=== PATIENT | male | born 1960 | race Caucasian/White ===

== ENCOUNTER → 2018-02-09 | Outpatient (CLI) | payer OTHER ==
--- NOTE | ~2018-02-09 | 2DMMODE ---
[facility] [employer] [place] [address] 2 D/M-MODE ECHOCARDIOGRAM Name: KTOA BERNARD Room #: REG [facility]#: [id number] Admission: 02/09/18 Attend Phys: Alvaro Wells, Discharge: Date of : 58 Date of Service: 02/09/18 1024 Report #: [id number] THIS REPORT FOR: //name// APPROVED REPORT Study performed: 02/09/2018 09:09:26 EXAM: Comprehensive 2D, Doppler, and color-flow Echocardiogram Patient Location: Out-Patient Status: routine BSA: 2.58 HR: 54 bpm BP: 128/76 mmHg Rhythm: NSR/arrhythmia Other Information Study Quality: Adequate/morbid obesity. Indications History of Afib. Hx: HTN,HLP,DM. 2D Dimensions RVDd: 36.00 mm IVSd: 12.00 (7-11mm) LVOT Diam: 22.00 (18-24mm) LVDd: 51.00 mm PWd: 12.00 (7-11mm) Ascending Ao: 34.20 (22-36mm) LVDs: 27.00 (25-40mm) Aortic Root: 35.00 mm Volumes Left Atrial Volume (Systole) Single Plane 4CH: 61.67 mL Single Plane 2CH: 71.04 mL LA ESV Index: 27.00 mL/m2 Aortic Valve AoV Peak Ronnell.: 1.40 m/s AO Peak Gr.: 7.81 mmHg LVOT Max P.79 mmHg LVOT Max V: 0.97 m/s JASMIN Vmax: 2.57 cm2 Mitral Valve E/A Ratio: 2.2 MV Decel. Time: 220.73 ms MV E Max Ronnell.: 1.11 m/s [facility] [address] [place] [address] 2 D/M-MODE ECHOCARDIOGRAM Name: KOTA BERNARD Room #: [facility]#: [id number] Admission: 02/09/18 Attend Phys: Alvaro Wells, Discharge: Date of : 58 Date of Service: 02/09/18 [facility] Report #: [id number] MV A Ronnell.: 0.51 m/s MV PHT: 64.01 ms IVRT: 92.27 ms Pulmonary Valve PV Peak Ronnell.: 1.07 m/s PV Peak Gr.: 4.56 mmHg Pulmonary Vein P Vein S: 0.65 m/s P Vein A: 0.30 m/s P Vein D: 0.77 m/s P Vein A Dur.: 152.2 msec P Vein S/D Ratio: 0.84 Tricuspid Valve TR Peak Ronnell.: 2.44 m/s RAP Estimate: 5.00 mmHg TR Peak Gr.: 24.00 mmHg PA Pressure: 29.00 mmHg Left Ventricle The left ventricle is normal size. There is normal LV segmental wall motion. Mild concentric left ventricular hypertrophy. Left ventricular systolic function is normal. LVEF is 60-65%. The left ventricular diastolic function is normal. Right Ventricle The right ventricle is normal size. The right ventricular systolic function is normal. Atria The left atrium size is normal. The right atrium size is normal. Aortic Valve The aortic valve is normal in structure. No aortic regurgitation is present. There is no aortic valvular stenosis. Mitral Valve The mitral valve is normal in structure. Trace to mild mitral regurgitation. No evidence of mitral valve stenosis. Tricuspid Valve The tricuspid valve is normal in structure. Trace tricuspid regurgitation. Estimated PAP is 30mmHg. Pulmonic Valve The pulmonary valve is normal in structure. There is no pulmonic valvular regurgitation. [address] [address] 2 D/M-MODE ECHOCARDIOGRAM Name: KOTA BERNARD Room #: REG [facility]#: [id number] Admission: 02/09/18 Attend Phys: Alvaro Wells, Discharge: Date of : 58 Date of Service: 02/09/18 [facility] Report #: [id number] Great Vessels The aortic root is normal in size. The ascending aorta is normal in size. IVC is normal in size and collapses >50% with inspiration. Pericardium There is no pericardial effusion. <Conclusion> Mild concentric left ventricular hypertrophy. LVEF is 60-65%. <ELECTRONICALLY SIGNED> By: Joe Major MD, FACC 02/09/18 1024 1024 1024 Joe Major MD, FACC /INF
== END ==
LOC: CV 08:52
DX: I51.7 Cardiomegaly (principal); I48.91 Unspecified atrial fibrillation; E11.9 Type 2 diabetes mellitus without complications; E78.5 Hyperlipidemia, unspecified

== ENCOUNTER → 2018-04-07 | Outpatient (CLI) | payer OTHER | LOC: ULTRA 07:46 | DX: R16.2 Hepatomegaly with splenomegaly, not elsewhere classified (principal); N28.9 Disorder of kidney and ureter, unspecified; R74.8 Abnormal levels of other serum enzymes ==

== ENCOUNTER → 2018-04-20 | Outpatient (CLI) | payer OTHER | LOC: CAT 09:05 | DX: N28.1 Cyst of kidney, acquired (principal) ==

== ENCOUNTER → 2018-05-28 | Outpatient (CLI) | payer OTHER ==
[~2018-05-28] VITALS: Ht 180.3 cm; Wt 145.2 kg
[~2018-05-28] MED LIST: ALEVE220 MG PO; AMARYL4 MG PO; B-COMPLEX TABL0.4 MG PO; GLUCOPHAGE1000 MG PO; LIPITOR10 MG PO; LISINOPRIL-HCT1 EAC1 PO; MELATONIN5 M1 PO; MEN'S MULTIVIT1 EACH PO; SOTALOL 120 MG120 M1 PO; TRULICITY1.5 MG/0.5 SUBQ; TYLENOL PM EX-1 EACH PO; VITAMIN C1000 MG PO; VITAMIN D35000 UNIT PO; XARELTO20 MG PO
--- NOTE | ~2018-05-28 | P ---
[facility] [place] [address] PROCEDURE REPORT Name: KOTA BERNARD Room #: REG [facility]#: [id number] Admission: 05/28/18 ������������������ Attend Phys: Ryan Kam MD Discharge: ������������������ Date of : 58 Report #: [id number] THIS REPORT FOR: //name// CC: Ryan Khan DO DATE OF SERVICE: 05/28/2018 OUTPATIENT COLONOSCOPY: BRIEF HISTORY: The patient is a 58-year-old male who presents for his first average risk screening colonoscopy. PREOPERATIVE DIAGNOSIS: Average risk screening colonoscopy. POSTOPERATIVE DIAGNOSES: 1. Diminutive polyp at 50 cm. 2. Moderate left-sided diverticulosis coli. 3. Small internal hemorrhoids and anal tag. MEDICATIONS: Deep sedation with propofol per anesthesia. SPECIMEN: Polyp at 50 cm. ESTIMATED BLOOD LOSS: 3 mL. PROCEDURE: Colonoscopy to cecum and ileocecal valve with biopsy. FINDINGS: With the patient in left lateral decubitus position, digital examination was completed, which revealed no abnormalities. Subsequently, the Olympus video colonoscope was introduced in the rectum, advanced under direct vision to the cecum. Done with minimal difficulty. The cecum was identified by the ileocecal valve and the appendiceal orifice. I was able to advance the scope to the mouth of the ileocecal valve, but due to looping could not cross the ileocecal valve. Villi were seen. At that point, scope was slowly withdrawn and careful circumferential views obtained. The prep was good. The mucosa was within normal limits, normal vascular pattern, normal light reflex. As we withdrew the scope, no mucosal abnormalities were seen until the left colon was reached and at 50 cm, a diminutive polyp was seen, it was superficially eroded. This may be inflammatory may not be neoplastic, but in the last it was removed with biopsy forceps. Scope was further withdrawn and no additional neoplastic changes were seen. However, he was noted to have moderately severe diverticular disease of the left colon without endoscopic evidence of diverticulitis. The scope was withdrawn in the rectum and no abnormalities were seen. Upon retroflexion, small internal hemorrhoids were [facility] [address] [place] [address] PROCEDURE REPORT Name: KOTA BERNARD Room #: REG [facility].#: [id number] Admission: 05/28/18 ������������������ Attend Phys: Ryan Kam MD Discharge: ������������������ Date of : 58 Report #: [id number] seen. In addition, an anal tag was seen. Scope was withdrawn. The patient tolerated the procedure well. CONDITION OF THE PATIENT UPON DISCHARGE: Following the procedure, the patient was drowsy, arousable and conversant and will be discharged home when fully ambulatory. INSTRUCTIONS TO THE PATIENT AND FAMILY AT THE TIME OF DISCHARGE: One polypoid lesion removed. This may not be neoplastic. We will follow up on the path. If it is a neoplastic polyp such as an adenoma suggest followup colon exam in 5 years; if it is not neoplastic then 10 years would be indicated. Otherwise, suggest high-fiber diet. This is the patient's first colonoscopy. Withdrawal time from the cecum was 11 minutes and 19 seconds. ��������������������������������������������� ���������������������������������������� By: ��������������������������������������������� 0813 [id number] Ryan Kam MD /nt
== END ==
LOC: GI 06:37 → EDSTATUS 16:09 → GI 16:35
DX: Z12.11 Encounter for screening for malignant neoplasm of colon (principal); K57.30 Diverticulosis of large intestine without perforation or abscess without bleeding; K64.8 Other hemorrhoids; K63.5 Polyp of colon; Z68.41 Body mass index [BMI] 40.0-44.9, adult; I10 Essential (primary) hypertension; E78.5 Hyperlipidemia, unspecified; E11.9 Type 2 diabetes mellitus without complications; G47.30 Sleep apnea, unspecified; Z98.890 Other specified postprocedural states
CPT/HCPCS: 62110; 62900

== ENCOUNTER → 2018-10-26 | Outpatient (CLI) | payer OTHER | LOC: CAT 07:59 | DX: K76.0 Fatty (change of) liver, not elsewhere classified (principal); N28.1 Cyst of kidney, acquired; K74.60 Unspecified cirrhosis of liver ==

== ENCOUNTER 2018-11-14 19:18 | Emergency (ER) | payer OTHER ==
[~2018-11-14] VITALS: Ht 180.3 cm; Wt 145.2 kg
[2018-11-14 19:20] VITALS: BP 164/77
[2018-11-14] MEDS ORDERED: VALACYCLOVIR1000 MG PO (19:53)
[2018-11-14] MEDS ORDERED: NORCO 5-325 TA1 EAC1 PO (19:56)
== END 2018-11-14 20:31 | disposition home or self-care (01) ==
LOC: ER 19:18
DX: B02.39 Other herpes zoster eye disease (principal); E11.9 Type 2 diabetes mellitus without complications; I10 Essential (primary) hypertension; I48.91 Unspecified atrial fibrillation; G47.30 Sleep apnea, unspecified; E78.5 Hyperlipidemia, unspecified; Z90.89 Acquired absence of other organs; Z98.890 Other specified postprocedural states; Z88.1 Allergy status to other antibiotic agents; Z88.5 Allergy status to narcotic agent; Z91.041 Radiographic dye allergy status; Z88.6 Allergy status to analgesic agent

== ENCOUNTER → 2018-12-16 | Outpatient (CLI) | payer OTHER ==
[~2018-12-16] VITALS: Ht 180.3 cm; Wt 158.8 kg
[~2018-12-16] MED LIST changes: +NORCO 5-325 TA1 EAC1 PO; +VALACYCLOVIR1000 MG PO
[2018-12-16 08:56] VITALS: BP 128/60
[2018-12-16 09:16] LABS: PROTIME 10.8 Seconds (9.3-11.4)
[2018-12-16 09:57] VITALS: BP 147/56
[2018-12-16 10:20] VITALS: BP 138/60
[2018-12-16 10:25] VITALS: BP 136/57
[2018-12-16 10:30] VITALS: BP 130/59
[2018-12-16 10:35] VITALS: BP 126/58
--- NOTE | 2018-12-20 10:06 | PATH ---
[facility] [address] [place] [address] PATHOLOGY RPT PROCEDURE Name: KOTA BERNARD Room #: [facility] [id number] Admission: 12/16/18 Date of : 58 Discharge: Report #: [id number] Path Case #: [id number] [facility] Accession Number: [id number] . 01 Material submitted: . liver - GENERAL LIVER BX . 01 Clinical history: . Elevated LFTs . 02 Diagnosis: Liver, needle core biopsy: - Mild steatohepatitis, NAFLD activity score 3/8 (steatosis = 1/3, lobular inflammation 1/3, and ballooning 1/8). - Mixed portal chronic inflammation along with ductular proliferation as well as hepatocyte reza formation, see comment. - Parag-Saul score grade 2/4 and stage 3-4/4. (IUV/db; 12/17/2018) LBQ 12/20/2018 0918 Local . 02 Comment: Examination of the liver needle core biopsy tissue shows extensive fibrosis and septa formation with a mixed inflammatory pattern. Mild (20 percent) macrovesicular steatosis is present along with ballooning and rare Shaista-Denk bodies. Rare glycogenated nuclei are present. Lobular inflammation is minimal to mild. The portal tracts and septa are markedly expanded by a mixed chronic inflammatory infiltrate comprised of lymphocytes, plasma cells, eosinophils and a few neutrophils. Few lymphoid aggregates are noted as well. Ductular proliferation and hepatocyte rosettes are present focally. Well-formed florid duct lesions or sclerosing bile duct lesions are not present. There are no granulomata identified. Cholestasis is not present. . Special stains are performed on blocks A1, A2 and A3. Trichrome stain shows focal perisinusoidal fibrosis, extensive portal to portal and portal - venular bridging fibrosis along with nodule formation. Reticulin stain shows the same along with a few foci of condensation. Iron stain is negative. PAS with and without Diastase are negative for intracytoplasmic globules in zone 1. . Steatohepatitis can be seen in several clinical settings including situations of insulin resistance, with alcohol use, as an adverse reaction to several medications, with hyperlipidemias, after gastric or small bowel resections, and as an idiopathic variant. The portal chronic inflammatory changes identified are disproportionate to the steatohepatitis and may be due to autoimmune hepatitis or drug-induced liver injury. Please correlate clinically. [address] [address] PATHOLOGY RPT PROCEDURE Name: KOTA BERNARD Room #: REG [facility]#: [id number] Admission: 12/16/18 Date of : 58 Discharge: Report #: [id number] Path Case #: [id number] . Findings of this case are discussed with Dr. Ryan Kam at 11:28 am on 12/17/18. . (IUV/db; 12/17/2018) . 02 Electronically signed: . Sammie Duran MD, Pathologist NPI- [id number] . 01 Gross description: . The specimen is received in formalin, labeled "Kota Bernard, liver biopsy". Received are four needle cores of orange-verma soft tissue ranging in length from 0.9 to 1.4 cm in length by 0.1 cm in diameter. The specimen is submitted entirely in cassette A1 through A3. (CAA; 12/16/2018) QA/QA 12/16/2018 1505 Local . 02 Pathologist provided ICD-10: K75.81, K76.9 . 02 CPT . 968392, 791023, 191720, 820093, 832071, 667737, 510681, 974457, 286937, 569725, 079406, 720829, 277278 Specimen Comment: A courtesy copy of this report has been sent to Specimen Comment: [phone], . Specimen Comment: Report sent to / DR THOMPSON Performed at: [address] [facility], [place] [id number] MD pK Rodriguez MD Phone: [phone] Performed at: [address] [facility] [id number] MD Sammie Duran MD Phone: [phone]
== END | disposition home or self-care (01) ==
LOC: ULTRA 08:18
PROVIDERS: Radiology Diagnostic Radiology
DX: R94.5 Abnormal results of liver function studies (principal); R79.89 Other specified abnormal findings of blood chemistry; K75.81 Nonalcoholic steatohepatitis (NASH); K76.9 Liver disease, unspecified; K73.8 Other chronic hepatitis, not elsewhere classified; I10 Essential (primary) hypertension; E78.5 Hyperlipidemia, unspecified; E11.9 Type 2 diabetes mellitus without complications; Z79.4 Long term (current) use of insulin; G47.33 Obstructive sleep apnea (adult) (pediatric); I48.91 Unspecified atrial fibrillation; Z98.890 Other specified postprocedural states; Z79.899 Other long term (current) drug therapy; Z79.01 Long term (current) use of anticoagulants; Z79.891 Long term (current) use of opiate analgesic
CPT/HCPCS: 52317

== ENCOUNTER → 2019-08-11 | Outpatient (CLI) | payer OTHER | LOC: CAT 09:31 | DX: N28.1 Cyst of kidney, acquired (principal); K74.60 Unspecified cirrhosis of liver; R16.1 Splenomegaly, not elsewhere classified ==

== ENCOUNTER 2019-10-03 21:36 | Emergency (ER) | payer OTHER ==
[~2019-10-03] VITALS: Ht 180.3 cm; Wt 142.9 kg
[2019-10-03 23:10] LABS: ABSOLUTE NEUTROPHILS 12.7 thou/uL (1.4-8.2); BASOPHILS 0.4 % (0.0-2.0); EOSINOPHILS 0.7 % (0.0-3.0); HEMATOCRIT 43.3 % (42.0-52.0); MCH 30.6 pg (26.0-34.0); MCHC 34.6 g/dL (28.0-37.0); MCV 88.5 fL (80.0-100.0); MONOCYTES 7.5 % (1.0-8.0); PLATELET COUNT 149 thou/uL (150-400); POLYS 84.4 % (36.0-66.0); RBC 4.89 mil/uL (4.50-6.00); RDW 13.4 % (10.5-14.5)
[2019-10-03 23:14] LABS: POTASSIUM 3.8 mmol/L (3.5-5.1)
[2019-10-03 23:20] LABS: ALBUMIN 3.6 g/dL (3.4-5.0); TOTAL BILIRUBIN 1.5 mg/dL (0.2-1.0); TOTAL PROTEIN 7.5 g/dL (6.4-8.2)
[2019-10-04 00:07] LABS: URINE BILIRUBIN NEGATIVE (Negative); URINE BLOOD NEGATIVE (Negative); URINE CLARITY CLEAR; URINE COLOR YELLOW; URINE GLUCOSE-RANDOM* NEGATIVE (Negative); URINE KETONES NEGATIVE (Negative); URINE LEUKOCYTES-REFLEX NEGATIVE (Negative); URINE NITRITE-REFLEX NEGATIVE (Negative); URINE PROTEIN (DIPSTICK) NEGATIVE (Negative); URINE SPECIFIC GRAVITY <= 1.005 (1.005-1.035); URINE UROBILINOGEN 0.2 E.U./dl (0.2-1.0)
[2019-10-04 01:49] VITALS: BP 120/52
== END 2019-10-04 01:58 | disposition home or self-care (01) ==
LOC: ER 21:36
PROVIDERS: Emergency Medicine
DX: R50.9 Fever, unspecified (principal); R19.7 Diarrhea, unspecified; I10 Essential (primary) hypertension; E11.9 Type 2 diabetes mellitus without complications; E78.5 Hyperlipidemia, unspecified; I48.91 Unspecified atrial fibrillation; Z20.828 Contact with and (suspected) exposure to other viral communicable diseases; Z79.899 Other long term (current) drug therapy; Z88.1 Allergy status to other antibiotic agents; Z88.8 Allergy status to other drugs, medicaments and biological substances; Z91.048 Other nonmedicinal substance allergy status

== ENCOUNTER → 2020-06-29 | Outpatient (CLI) | payer OTHER | LOC: SJCVCIMAG 15:02 | PROVIDERS: ATTEND Internal Medicine Cardiovascular Disease | DX: I48.0 Paroxysmal atrial fibrillation (principal); E11.9 Type 2 diabetes mellitus without complications; E78.2 Mixed hyperlipidemia; G47.33 Obstructive sleep apnea (adult) (pediatric); Z79.4 Long term (current) use of insulin; Z79.899 Other long term (current) drug therapy; Z88.0 Allergy status to penicillin; Z88.8 Allergy status to other drugs, medicaments and biological substances; Z72.89 Other problems related to lifestyle ==

== ENCOUNTER → 2020-07-20 | Outpatient (CLI) | payer OTHER ==
[2020-07-20 10:20] LABS: ABSOLUTE NEUTROPHILS 5.9 thou/uL (1.4-8.2); BASOPHILS 0.6 % (0.0-2.0); EOSINOPHILS 3.5 % (0.0-3.0); HEMATOCRIT 47.9 % (42.0-52.0); HEMOGLOBIN 16.7 gm/dL (14.0-18.0); LYMPHOCYTES 27.2 % (24.0-44.0); MCH 30.7 pg (26.0-34.0); MCHC 34.9 g/dL (28.0-37.0); MONOCYTES 11.5 % (1.0-8.0); PLATELET COUNT 212 thou/uL (150-400); POLYS 57.2 % (36.0-66.0); RBC 5.44 mil/uL (4.50-6.00); RDW 13.2 % (10.5-14.5); WBC 10.4 thou/uL (4.0-11.0)
[2020-07-20 10:38] LABS: ALBUMIN 3.6 g/dL (3.4-5.0); CALCIUM 9.2 mg/dL (8.5-10.1); CREATININE 1.2 mg/dL (0.7-1.3); POTASSIUM 4.1 mmol/L (3.5-5.1); TOTAL BILIRUBIN 0.8 mg/dL (0.2-1.0); TOTAL PROTEIN 7.2 g/dL (6.4-8.2)
== END ==
LOC: CAT 09:16
PROVIDERS: ATTEND Internal Medicine Cardiovascular Disease
DX: I48.91 Unspecified atrial fibrillation (principal)

== ENCOUNTER → 2020-07-20 | Outpatient (CLI) | payer OTHER | LOC: LAB 08:00 | PROVIDERS: ATTEND Internal Medicine Cardiovascular Disease | DX: Z01.812 Encounter for preprocedural laboratory examination (principal); Z20.822 Contact with and (suspected) exposure to COVID-19 ==

== ENCOUNTER 2020-07-25 06:31 | Observation (INO) | payer OTHER ==
[~2020-07-25] VITALS: Ht 180.3 cm; Wt 141.5 kg
[2020-07-25 07:19] VITALS: BP 168/84
[2020-07-25] MEDS ORDERED: CHILDREN'S ZYRT10 M1 PO (07:38)
[2020-07-25] MEDS ORDERED: WELLBUTRIN XL300 MG PO (07:38)
[2020-07-25] MEDS ORDERED: TYLENOL PM EX-1 EACH PO (07:42)
[2020-07-25] MEDS ORDERED: HUMULIN R100 UNIT/1 INTRADERM (07:44)
[2020-07-25] MEDS ORDERED: OZEMPIC0.25 MG/0. SUBQ (07:48)
[2020-07-25 07:55] LABS: APTT 26.8 Seconds (24.5-32.8); INR 1.07; PROTIME 11.6 Seconds (10.5-12.1)
[2020-07-25 13:44] VITALS: BP 157/85
[2020-07-25 15:05] VITALS: BP 150/81
[2020-07-25 16:13] VITALS: BP 153/81
--- NOTE | 2020-07-25 16:39 | NUR ---
PT TO THE UNIT POST A FIB ABLATION - ORIENTED TO ROOM AND BEDSPACE. RUTH DIET AND FLUIDS. GROIN SITE STABLE, VSS. PT HAS VOIDED POST PROCEDURE. REMIANS ON BEDREST AT THE PRESENT TIME. ASSESSMENT CHARTED . PT STATES THAT HE IS RESTING COMFORTABLY - AT THE BEDSDIE. NO CO'S AT THE PRESENT TIME.
[2020-07-25 17:17] VITALS: BP 154/75
[2020-07-25 20:45] VITALS: BP 172/84
[2020-07-26 00:45] VITALS: BP 151/74
[2020-07-26 04:45] VITALS: BP 164/75
[2020-07-26 07:12] VITALS: BP 151/79
[2020-07-26 09:27] VITALS: BP 151/79
--- NOTE | 2020-07-26 10:06 | NUR ---
assessment as charted - meds as per ron - jose diet and fluids. up ad leatha in room. groin site c/d/i. given tylenol for co's of headache with mod relief. pt home this am - instruction re home meds/ care and follow up given to patient - stated understanding of instruction given. pt left unit via wheelchair - home via pvt vehicle accompanied by . no co's at time of d/c.
--- NOTE | 2020-08-03 12:07 | P ---
[facility] [place] [address] [place] [address] PROCEDURE REPORT Name: KOTA BERNARD Room #: 211-P [facility] [place]#: [id number] Admission: 07/25/20 Attend Phys: Stevie Heath MD Discharge: 07/26/20 Date of : 58 Report #: [id number] THIS REPORT FOR: cc: Jt Khan Vincent R. DO Couchonnal, Luis F. MD ~ DOC #: [id number] Stevie Heath MD DATE OF SERVICE: 07/25/2020 PREOPERATIVE DIAGNOSIS: Atrial fibrillation. POSTOPERATIVE DIAGNOSIS: Atrial fibrillation. PROCEDURE PERFORMED: 1. Atrial fibrillation ablation. CPT code 43993. 2. 3D mapping. CPT code 25257. 3. Intracardiac echo. CPT code 45800. HISTORY: The patient is a 60-year-old with recurrent AFib, here for ablation. ANESTHESIA: The patient underwent general anesthesia. No anesthesia related complications. DESCRIPTION OF PROCEDURE: The patient underwent informed consent. He was prepped and draped in a sterile fashion. I injected lidocaine at the right groin to obtain access to the right femoral vein x 3, placing a 8, 9, and 7-Beninese short sheath using modified Seldinger technique. At baseline, the patient was in sinus rhythm. ICE catheter was placed in the right atrium and a decapolar catheter was placed in the coronary sinus. The patient was systemically heparinized. A transseptal was performed using a [place] needle and SL1 sheath. This was straightforward and exchanged for the cryo sheath. Next, a Lasso catheter was placed in the left atrium and a 3D geometry of the left atrium was created. Next, we started by isolating the pulmonary veins; the left superior pulmonary vein underwent a 4-minute freeze isolating at 80 seconds. An additional freeze was performed at 3 minutes duration. The left inferior pulmonary vein underwent 4-minute freeze and isolated at 125 seconds, but reconnected, a second freeze of 4-minutes duration was performed and again isolated at 100 seconds. I then went to the right superior pulmonary vein and performed a 3-minute freeze and the vein isolated at 25 seconds. The right inferior pulmonary vein underwent 60-second freeze followed by 4-minute freeze, followed by 2 more 4-minute freezes, followed by 120-second freeze. The balloon never really had good contact with this pulmonary vein. There were poor temperatures and never isolated. I did perform some contrast injections to see if I could find a better seal, but this [facility] [address] [place] [address] PROCEDURE REPORT Name: KOTA BERNARD Ana Room #: 211-P [facility] M.R.#: [id number] Admission: 07/25/20 Attend Phys: Stevie Heath MD Discharge: 07/26/20 Date of : 58 Report #: [id number] also did not work. Therefore, I decided to transition over to radiofrequency ablation. I quickly checked all the veins and it appeared that the left inferior pulmonary vein also reconnected. Therefore, using the SL1 sheath and the SmartTouch ThermoCool ablation catheter I isolated the left inferior pulmonary vein after about 30 seconds along the inferior aspect of this vein. I then turned my attention to the right inferior pulmonary vein and this vein was isolated as well, but this was somewhat more challenging to isolate as well and took approximately 30 minutes to achieve isolation. As such, the procedure was concluded. There was no pericardial effusion. The patient received systemic protamine and catheters and sheaths were pulled and hemostasis obtained. CONCLUSIONS: Successful atrial fibrillation with isolation of the pulmonary veins with requirement of RF ablation for the left inferior and right inferior pulmonary veins. MD KATHY Fabian/ADRY <ELECTRONICALLY SIGNED> By: Stevie Heath MD 08/03/20 1207 0746 0038 Stevie Heath MD /nt
== END 2020-07-26 10:05 | disposition home or self-care (01) ==
LOC: CATH 06:31 → 2N 13:39 → CATH 14:30 → 2N 07-26 10:05
PROVIDERS: ADMIT Internal Medicine Cardiovascular Disease; ATTEND Internal Medicine Cardiovascular Disease
DX: I48.0 Paroxysmal atrial fibrillation (principal); I10 Essential (primary) hypertension; E11.9 Type 2 diabetes mellitus without complications; E78.5 Hyperlipidemia, unspecified; G47.30 Sleep apnea, unspecified; E66.9 Obesity, unspecified; Z68.41 Body mass index [BMI] 40.0-44.9, adult; Z79.899 Other long term (current) drug therapy
CPT/HCPCS: 62110; 62900; 65020; 70005

== ENCOUNTER 2020-10-29 20:51 | Emergency (ER) | payer OTHER ==
[~2020-10-29] VITALS: Ht 180.3 cm; Wt 138.8 kg
[~2020-10-29 20:51] MED LIST changes: +CHILDREN'S ZYRT10 M1 PO; +HUMULIN R100 UNIT/1 INTRADERM; +OZEMPIC0.25 MG/0. SUBQ; +WELLBUTRIN XL300 MG PO
[2020-10-29] MEDS ORDERED: TRAMADOL 50 MG50 MG PO (23:09)
[2020-10-29 23:37] VITALS: BP 141/64
== END 2020-10-29 23:48 | disposition home or self-care (01) ==
LOC: ER 20:51
DX: S80.01XA Contusion of right knee, initial encounter (principal); E66.9 Obesity, unspecified; I48.91 Unspecified atrial fibrillation; E11.9 Type 2 diabetes mellitus without complications; I10 Essential (primary) hypertension; E78.5 Hyperlipidemia, unspecified; Z79.4 Long term (current) use of insulin; Z79.891 Long term (current) use of opiate analgesic; Z79.1 Long term (current) use of non-steroidal anti-inflammatories (NSAID); Z79.899 Other long term (current) drug therapy; Z88.6 Allergy status to analgesic agent; Z88.1 Allergy status to other antibiotic agents; Z91.040 Latex allergy status; W18.39XA Other fall on same level, initial encounter; Y93.89 Activity, other specified; Y92.89 Other specified places as the place of occurrence of the external cause; Y99.8 Other external cause status

== ENCOUNTER 2020-11-08 13:09 | Emergency (ER) | payer OTHER ==
[~2020-11-08] VITALS: Ht 182.9 cm; Wt 115.7 kg
[~2020-11-08 13:09] MED LIST changes: +TRAMADOL 50 MG50 MG PO
[2020-11-08 13:18] VITALS: BP 157/80
[2020-11-08 15:12] LABS: ABSOLUTE NEUTROPHILS 6.8 thou/uL (1.4-8.2); BASOPHILS 0.4 % (0.0-2.0); EOSINOPHILS 2.3 % (0.0-3.0); HEMATOCRIT 36.1 % (42.0-52.0); HEMOGLOBIN 12.4 gm/dL (14.0-18.0); LYMPHOCYTES 17.9 % (24.0-44.0); MCH 30.5 pg (26.0-34.0); MCHC 34.3 g/dL (28.0-37.0); MCV 88.9 fL (80.0-100.0); MONOCYTES 14.2 % (1.0-8.0); PLATELET COUNT 273 thou/uL (150-400); POLYS 65.2 % (36.0-66.0); RBC 4.06 mil/uL (4.50-6.00); RDW 13.4 % (10.5-14.5); WBC 10.4 thou/uL (4.0-11.0)
[2020-11-08 15:16] LABS: CALCIUM 8.7 mg/dL (8.5-10.1); CREATININE 1.2 mg/dL (0.7-1.3); POTASSIUM 4.1 mmol/L (3.5-5.1)
[2020-11-08 15:31] LABS: ALBUMIN 3.1 g/dL (3.4-5.0); TOTAL BILIRUBIN 1.5 mg/dL (0.2-1.0); TOTAL PROTEIN 7.4 g/dL (6.4-8.2)
[2020-11-08] MEDS ORDERED: CEPHALEXIN500 MG PO (16:07)
[2020-11-08] MEDS ORDERED: TRAMADOL 50 MG50 MG PO (16:40)
== END 2020-11-08 16:50 | disposition home or self-care (01) ==
LOC: ER 13:09
PROVIDERS: Emergency Medicine
DX: M79.604 Pain in right leg (principal); L03.115 Cellulitis of right lower limb; I48.91 Unspecified atrial fibrillation; I10 Essential (primary) hypertension; E11.9 Type 2 diabetes mellitus without complications; E78.5 Hyperlipidemia, unspecified; E66.9 Obesity, unspecified; Z79.2 Long term (current) use of antibiotics; Z79.4 Long term (current) use of insulin; Z79.899 Other long term (current) drug therapy; Z88.1 Allergy status to other antibiotic agents; Z88.6 Allergy status to analgesic agent

== ENCOUNTER → 2020-11-13 | Outpatient (CLI) | payer OTHER ==
[~2020-11-13] MED LIST changes: +CEPHALEXIN500 MG PO
== END ==
LOC: MRI 07:35
PROVIDERS: ATTEND Family Medicine
DX: S80.01XA Contusion of right knee, initial encounter (principal); R93.5 Abnormal findings on diagnostic imaging of other abdominal regions, including retroperitoneum; X58.XXXA Exposure to other specified factors, initial encounter; Y93.89 Activity, other specified; Y92.89 Other specified places as the place of occurrence of the external cause; Y99.8 Other external cause status